=== PATIENT | male | born 1985 | race Caucasian/White ===

== ENCOUNTER 2024-05-09 06:35 | Day surgery (SDC) | payer BC ==
[2024-05-09] MEDS: Sodium Chloride 0.9% 1,000 ML IV SCH (07:11)
[2024-05-09] MEDS ORDERED: Propofol 200 MG/20 ML SDV ONE (07:26)
[2024-05-09] MEDS ORDERED: Midazolam 1 MG/ML 2 ML SDV ONE (07:27)
[2024-05-09] MEDS ORDERED: fentaNYL 100 MCG/2 ML SDV ONE (07:27)
== END 2024-05-09 09:40 | disposition home or self-care (01) ==
LOC: JP.SDS 06:35
PROVIDERS: ATTEND Surgery
DX: Z12.11 Encounter for screening for malignant neoplasm of colon (principal); F41.1 Generalized anxiety disorder; Z80.0 Family history of malignant neoplasm of digestive organs
CPT/HCPCS: 00811; 45380; 88305; J2250; J2704; J3010; J7030